=== PATIENT | female | born 1960 | race African-American/Black ===

== ENCOUNTER 2017-12-04 19:29 | Emergency (ER) | payer BC ==
[~2017-12-04] VITALS: Ht 160 cm; Wt 85.8 kg
[2017-12-04 20:20] VITALS: Ht 160 cm; Wt 85.8 kg
[2017-12-04 22:20] VITALS: BP 124/78
== END 2017-12-04 22:20 | disposition home or self-care (01) ==
LOC: ED 19:29
DX: J11.1 Influenza due to unidentified influenza virus with other respiratory manifestations (principal)
CPT/HCPCS: 87804; J1885; Q0162